=== PATIENT | male | born 1995 | race African-American/Black ===

== ENCOUNTER 2017-03-20 16:00 | Emergency (ER) | payer MEDICAID ==
[~2017-03-20] VITALS: Ht 200.7 cm; Wt 92.0 kg
[2017-03-20 16:01] VITALS: BP 143/70; PULSE 76; RESP 16; TEMP 97.7; O2SAT 98
--- NOTE | 2017-03-20 17:28 | RADRPT ---
EXAM DATE/TIME: 03/20/2017 17:00 [place] COMPARISON: No previous studies available for comparison. INDICATIONS : Left shoulder pain after patient was lifting weights, patient states he felt his shoulder slip MEDICAL HISTORY : None. SURGICAL HISTORY : None. ENCOUNTER: Initial ACUITY: 1 day PAIN SCORE: 10/10 LOCATION: Left entire shoulder FINDINGS: Multiple view examination of the left shoulder demonstrates no evidence of fracture or dislocation. The glenohumeral and acromioclavicular joints are maintained. There is normal range of motion betwee n internal and external rotation. Bony mineralization is normal. CONCLUSION: Negative for fracture or dislocation. Follow up in 7-10 days is suggested if symptoms persist. Kiel Mcmahan MD FACR on March 20, 2017 at 17:26 Board Certified Radiologist. This report was verified electronically.
[2017-03-20] MEDS ORDERED: ACETAMINOPHEN/HYDROcodone 325 MG/5 MG TAB PO ONE (17:30)
--- NOTE | 2017-03-20 17:32 | PD ---
HPI Chief Complaint: Injury Time Seen by Provider: 17:28 Travel History International Travel<30 days: No Contact w/Intl Traveler<30days: No Traveled to known affect area: No History of Present Illness HPI 21-year-old male presents emergency Department with complaint of left shoulder dislocation and pain after picking up a 20-25 pound kettle belt today. His trainers put his shoulder back into place, but he thinks it still partially dislocated. Reports decreased range of motion and decreased strength to the affected extremity. Denies paresthesias, loss of sensation to the affected extremity. As an arm sling in place for support. Has not taken any medications to alleviate his symptoms. His pain 01/10. Describes pain as a throbbing sensation. Symptoms are moderate in severity. Has no other medical complaints. No other modifying factors or associated signs and symptoms. [facility] Social History Tobacco Use: No Allergies-Medications (Allergen,Severity, Reaction): Coded Allergies: No Known Allergies (Unverified , 03/20/17) Reported Meds & Prescriptions Reported Meds & Active Scripts Active Robaxin (Methocarbamol) 500 Mg Tab 500 Mg PO QID PRN Ibuprofen 800 Mg Tab 800 Mg PO Q6HR PRN Review of Systems Except as stated in HPI: all other systems reviewed are Neg Physical Exam Narrative GENERAL: Well-nourished, well-developed black male patient, in no acute distress SKIN: Warm and dry. HEAD: Atraumatic. Normocephalic. EYES: Pupils equal and round. No scleral icterus. No injection or drainage. ENT: Mucosa pink and moist. Airway patent. NECK: Supple. Trachea midline. CARDIOVASCULAR: Regular rate. RESPIRATORY: No accessory muscle use. GASTROINTESTINAL: Flat. MUSCULOSKELETAL: Shoulder with edema and without erythema or ecchymosis; no obvious deformity; unable to assess range of motion secondary to patient guarding and pain; shoulders equal; decreased director hris strength; 2+ radial pulse; sensory intact. No obvious deformities. No clubbing. No cyanosis. No edema. NEUROLOGICAL: Awake and alert. Oriented 3. No obvious cranial nerve deficits. Motor grossly within normal limits. Normal speech. PSYCHIATRIC: Appropriate mood and affect; insight and judgment normal. Data Data Last Documented VS Vital Signs Date Time Temp Pulse Resp B/P (MAP) Pulse Ox O2 Delivery O2 Flow Rate FiO2 03/20/17 16:01 97.7 76 16 143/70 (94) 98 Room Air Orders Orders Shoulder, Complete (>2vws) (03/20/17 ) Acetamin-Hydrocod 325-5 Mg ([place] 5-325 (03/20/17 17:30) Ed Discharge Order (03/20/17 17:36) [facility] Medical Decision Making Medical Screen Exam Complete: Yes Emergency Medical Condition: Yes Medical Record Reviewed: Yes Differential Diagnosis Shoulder dislocation, shoulder fracture, shoulder strain, should injury Narrative Course 20-year-old male with left shoulder injury. He initially says it was dislocated and his trainers put it back into place. Lortab ordered. Left shoulder x-ray ordered in triage. 1733: Shoulder x-ray with no acute findings. Suggests following up in 7-10 days if symptoms persist. X-ray findings discussed with patient. X-ray report provided to the patient. Patient has arm sling for support. Ibuprofen and muscle relaxers prescribed for home. Instructed patient to follow up with orthopedics as needed. Instructed patient to follow up with primary care provider. Patient verbalizes understanding and agreement with treatment plan. Patient is medically cleared and stable for discharge. Discussed reasons to return to the emergency department. Patient agrees with treatment plan. The patients vital signs are stable and the patient is stable for outpatient follow- up and treatment. Patient discharged home, stable and in no acute distress. Diagnosis Primary Impression: Injury of left shoulder Qualified Codes: S49.92XA - Unspecified injury of left shoulder and upper arm , initial encounter Referrals: Orthopaedic Surgeon Primary Care Physician Patient Instructions: General Instructions, Shoulder Sprain (ED) Additional Instructions: Tylenol or ibuprofen as needed and as directed to reduce pain and inflammation Rest, ice, and compress extremity to decrease pain and inflammation Arm sling for support Avoid aggravating activity; increase activity as tolerated Follow-up with primary care provider Follow-up with orthopedics as needed Return to the emergency department immediately with worsening symptoms Med/Other Pt SpecificInfo: Prescription(s) given Scripts Methocarbamol (Robaxin) 500 Mg Tab 500 MG PO QID Y for MUSCLE SPASM, #30 TAB 0 Refills Prov: Marsha Leon 03/20/17 Ibuprofen (Ibuprofen) 800 Mg Tab 800 MG PO Q6HR Y for PAIN, #30 TAB 0 Refills Prov: Marsha Leon 03/20/17 Disposition: 01 DISCHARGE HOME Condition: Stable Marsha Leon Mar 20, 2017 17:32
[2017-03-20] MEDS ORDERED: ROBA500T PO (17:35)
[2017-03-20] MEDS ORDERED: IBUP800T23 PO (17:35)
== END 2017-03-20 18:11 | disposition home or self-care (01) ==
LOC: NEPK 16:00
DX: S49.92XA Unspecified injury of left shoulder and upper arm, initial encounter (principal); X50.0XXA Overexertion from strenuous movement or load, initial encounter; Y93.B3 Activity, free weights; Y92.9 Unspecified place or not applicable
CPT/HCPCS: 73030; 99283